=== PATIENT | female | born 1995 | race African-American/Black ===

== ENCOUNTER 2016-08-30 09:32 | Emergency (ER) | payer OTHER ==
[~2016-08-30] VITALS: Ht 167.6 cm; Wt 61.3 kg
[2016-08-30 10:24] LABS: BILIRUBIN,URINE NEG (NEG); CLARITY,URINE HAZY; COLOR,URINE YELLOW; GLUCOSE,URINE NEG (NEG)
[2016-08-30 10:25] LABS: BACTERIA,URINE FEW /HPF (0-FEW); NITRITE,URINE NEG (NEG); SQUAMOUS EPITHELIAL CELL,UR MOD /LPF; UROBILINOGEN,URINE 0.2 mg/dL (0.2 mg/dL)
--- NOTE | 2016-08-30 10:27 | PHYS DOC ---
General Chief Complaint: ABDOMINAL PAIN Stated Complaint: ABD PAIN Time Seen by MD: 09:39 Source: patient Exam Limitations: no limitations Problems: History of Present Illness Initial Comments Pt is 20/F to ED c/o left lower quadrant abdominal pain. Pt states past few months intermittent LLQ abdominal discomfort (pt points LLQ/ groin) described as sharp/moderate. No relation to PO intake, no bowel/bladder/ vaginal symptoms. Pt says she felt it at home "a few seconds" this morning and decided to come in. No symptoms in ED, VSS no exacerbating/relieving factors. 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 Timing/Duration: intermittent (several months) Severity: mild Modifying Factors: improves with other Associated Symptoms: other Allergies: Coded Allergies: No Known Drug Allergies (Unverified , 08/30/16) Past Medical History Medical History: no pertinent history Surgical History: no surgical history Social History Smoker: less than 1 pack/day Alcohol: occasionally Drugs: none Review of Systems Constitutional: denies chills, denies diaphoresis, denies fever, denies malaise Respiratory: denies cough, denies shortness of breath, denies wheezing Cardiovascular: denies chest pain, denies palpitations, denies syncope Gastrointestinal: see HPI, abdominal pain, denies constipation, denies diarrhea , denies nausea, denies vomiting Genitourinary: see HPI, denies discharge, denies dysuria, denies frequency, denies hematuria, denies pain Musculoskeletal: denies back pain, denies joint swelling, denies neck pain Psychiatric/Neurological: denies headache, denies numbness, denies paresthesia Hematologic/Lymphatic: denies blood clots, denies easy bleeding, denies easy bruising Physical Exam General Appearance: WD/WN, no apparent distress Ear, Nose, Throat: hearing grossly normal, normal ENT inspection Neck: non-tender, supple Respiratory: normal breath sounds, no respiratory distress Cardiovascular: normal peripheral pulses, regular rate, rhythm Gastrointestinal: normal bowel sounds, non tender, soft, no organomegaly Rectal: deferred Back: no CVA tenderness, no vertebral tenderness Extremities: non-tender, normal inspection Neurologic/Psychiatric: purse maker II-XII nml as tested, no motor/sensory deficits, alert, oriented x 3 Skin: normal color, warm/dry Orders, Labs, Meds Patient's symptoms have been chronic in nature lasting several months. They have been intermittent since she is asymptomatic in the ED. Her vitals are stable I discussed the chronicity of this condition as well as the need to follow-up for further outpatient workup as no emergent condition noted in the ED. Ovarian cyst is likely she has not connected menstruation with the discomfort in the past however she is due to start her period and her symptoms are returning endometriosis as another possible etiology. Strongly encouraged to follow-up on post for further evaluation and to stop smoking. Departure Time of Disposition: 10:30 Disposition: 01 HOME, SELF-CARE Diagnosis: intermittent abdominal discomfort Condition: GOOD Patient Instructions: Abdominal Pain (Nonspecific), Ovarian Cyst, [id number] Additional Instructions: As discussed, urine studies normal today no or infection. No emergent condition evident in ED, further outpatient workup is indicated. Activity as tolerated. Rx: naprosyn empiric treatment possible ovarian cyst. Follow up at [facility] today or tomorrow to initiate further evaluation. Return to ED with new or changing symptoms. KARIN MARISCAL DO Aug 30, 2016 10:27
[2016-08-30] MEDS ORDERED: NAPR500T PO (10:36)
[2016-08-30 10:40] VITALS: BP 104/60
== END 2016-08-30 10:45 | disposition home or self-care (01) ==
LOC: ER 09:32
DX: R10.32 Left lower quadrant pain (principal); F17.200 Nicotine dependence, unspecified, uncomplicated
CPT/HCPCS: 81001; 81025; 99283